=== PATIENT | female | born 1985 | race African-American/Black ===

== ENCOUNTER 2016-04-11 02:47 | Emergency (ER) | payer SELFPAY ==
[~2016-04-11] VITALS: Ht 162.6 cm; Wt 52.2 kg
[2016-04-11 03:15] VITALS: BP 131/89
[2016-04-11] MEDS ORDERED: IBUPROFEN 600 MG TABLET. PO ONE (03:30)
[2016-04-11] MEDS ORDERED: CYCLOBENZAPRINE 10 MG TABLET. PO ONE (03:30)
[2016-04-11] MEDS ORDERED: IBUP-1007 PO (04:05)
[2016-04-11] MEDS ORDERED: CYCL10TA2 PO (04:05)
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
== END 2016-04-11 04:20 | disposition home or self-care (01) ==
LOC: ER 02:47
DX: S16.1XXA Strain of muscle, fascia and tendon at neck level, initial encounter (principal); V89.2XXA Person injured in unspecified motor-vehicle accident, traffic, initial encounter; Y93.89 Activity, other specified; Y92.413 State road as the place of occurrence of the external cause; Y99.8 Other external cause status
CPT/HCPCS: 72040; 81025; 99284

== ENCOUNTER 2016-04-16 19:59 | Emergency (ER) | payer SELFPAY ==
[~2016-04-16] VITALS: Ht 162.6 cm; Wt 52.2 kg
[~2016-04-16 19:59] MED LIST: CYCL10TA2 PO; IBUP-1007 PO
[2016-04-16 20:10] VITALS: BP 147/80
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
== END 2016-04-16 20:46 | disposition home or self-care (01) ==
LOC: ER 19:59
DX: M54.6 Pain in thoracic spine (principal); V89.2XXD Person injured in unspecified motor-vehicle accident, traffic, subsequent encounter
CPT/HCPCS: 99281

== ENCOUNTER 2016-12-01 13:24 | Emergency (ER) | payer SELFPAY ==
[~2016-12-01] VITALS: Ht 162.6 cm; Wt 50.3 kg
[2016-12-01 16:06] VITALS: BP 115/62
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
--- NOTE | 2016-12-02 06:14 | EKG ---
[facility] [address] [place] [address] Test Date: 2016-12-01 Test Time: 13:33:08 Pat Name: GEORGE WINTERS Department: Room: Gender: F [employer] Member: : 1985 Requested By: YRN ARENAS Order Number: [id number] Reading MD: Ivana Toro Measurements Intervals [place] Rate: 94 P: 68 WA: 118 QRS: 48 QRSD: 80 T: 38 QT: 338 QTc: 428 Interpretive Statements SINUS RHYTHM NORMAL ECG RI6.01 No previous ECG available for comparison Electronically Signed On 12-05-2016 12:16:20 CDT by Ivana Toro
== END 2016-12-01 16:20 | disposition home or self-care (01) ==
LOC: ER 13:24
DX: R07.89 Other chest pain (principal); F43.20 Adjustment disorder, unspecified
CPT/HCPCS: 93005; 99284-25

== ENCOUNTER 2017-05-24 18:06 | Emergency (ER) | payer OTHER ==
[2017-05-24] MEDS: IBUPROFEN 600 MG TABLET. PO (19:11)
== END 2017-05-24 19:15 | disposition home or self-care (01) ==
LOC: ER 18:06
DX: S29.012A Strain of muscle and tendon of back wall of thorax, initial encounter (principal); Z90.49 Acquired absence of other specified parts of digestive tract; V43.52XA Car driver injured in collision with other type car in traffic accident, initial encounter; Y93.I9 Activity, other involving external motion; Y92.410 Unspecified street and highway as the place of occurrence of the external cause; Y99.8 Other external cause status
CPT/HCPCS: 99283

== ENCOUNTER 2018-06-07 14:44 | Emergency (ER) | payer MEDICAID ==
[2017-05-24 18:39] VITALS: BP 135/80
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
== END 2018-06-07 15:38 | disposition home or self-care (01) ==
LOC: ER 14:44
DX: O99.89 Other specified diseases and conditions complicating pregnancy, childbirth and the puerperium (principal); R42 Dizziness and giddiness; R06.02 Shortness of breath; R07.89 Other chest pain; R00.2 Palpitations; R30.0 Dysuria; R11.2 Nausea with vomiting, unspecified; R19.7 Diarrhea, unspecified; Z98.890 Other specified postprocedural states
CPT/HCPCS: 81025; 99282